=== PATIENT | female | born 1955 | race Caucasian/White ===

== ENCOUNTER 2021-03-09 16:23 | Emergency (ER) | payer OTHER, SELFPAY ==
[2021-03-09 16:40] VITALS: BP 124/51; PULSE 86; RESP 18; TEMP 36.9; O2SAT 100
--- NOTE | 2021-03-09 18:03 | ED.URI ---
HPI - URI/Sore Throat General Chief Complaint: Upper Respiratory Infection Stated Complaint: sore throat ear pain congestion Time Seen by Provider: 03/09/21 18:04 Source: patient, RN notes reviewed and old records reviewed Mode of arrival: ambulatory Limitations: no limitations History of Present Illness HPI Narrative: 65 year old female presents to [facility] with complaints of cough, sore throat, bilateral ear pain, post nasal drainage since yesterday. Patient denies any known fevers, chills or sweats, denies any shortness of breath with exertion or at rest, no wheezing noted, no complaints of nausea, vomiting or diarrhea. Patient reports that she has taken DayQuil and NyQuil with no improvement in her symptoms. Patient reports that she has had COVID immunizations. MD elicited complaint: cough, sore throat, rhinorrhea and nasal congestion Pertinent past history: other (tobacco abuse) Onset (ago): day(s) (1) Consistency: progressively worsening Severity: moderate Pain scale (0-10): 6 Description of mucous: clear Able to tolerate fluids by mouth: Yes Exacerbating factors: swallowing Relieving factors: nothing Associated symptoms: rhinorrhea, nasal congestion, sore throat, cough and ear pain Treatments prior to arrival: other (Dayquil and Nyquil) Related Data Allergies Allergy/AdvReac Type Severity Reaction Status Date / Time No Known Allergies Allergy Verified 03/09/21 16:59 Review of Systems Review of Systems: Narrative: CONSTITUTIONAL: Denies fever, chills, or sweats. EYES: Denies visual changes, redness, or discharge. ENT: Positive for post nasal rhinorrhea, congestion, sore throat, no otalgia. CARDIOVASCULAR: Denies chest pain, palpitations, or edema. RESPIRATORY: Positive cough denies dyspnea. GASTROINTESTINAL: Denies abdominal pain, nausea, vomiting, or diarrhea. GENITOURINARY: Denies dysuria or hematuria. SKIN: Denies rash or itching. MUSCULOSKELETAL: Denies back pain, joint pain, or myalgia. NEUROLOGIC: Denies headache, numbness, or weakness. PSYCHIATRIC: Denies anxiety or depression. All systems reviewed & are unremarkable except as noted in HPI and below PMFSH Past Medical History Medical History (Updated 03/13/21 @ 10:37 by Joanie Ocasio NP) No significant medical problems Surgical History Surgical History (Updated 03/13/21 @ 10:31 by Joanie Ocasio NP) H/O total hysterectomy History of back surgery History of surgical removal of pilonidal cyst History of tonsillectomy Hx of cholecystectomy Family History Family History (Updated 03/13/21 @ 10:32 by Joanie Oacsio NP) Mother Hypertension Grandparent Heart disease Father Carcinoma of colon Social History Social History (Updated 03/13/21 @ 10:33 by Joanie Ocasio NP) Smoking packs per day: 1 Smoking cigarettes per day: 20.0 Years smoked: 40 Smoking pack-years: 40.00 Smoking status: Current every day smoker Alcohol intake: current Alcohol use details: social Substance use: never Living arrangements: with family Gender identity (if verbalized by the patient): Female Comments At time of signature, agree with nursing past medical, surgical, social and family history. There is no relevant family history pertinent to the presenting complaint Exam Narrative: Exam Narrative: GENERAL: Well-appearing, well-nourished, and in no acute distress. HEAD: Normocephalic, atraumatic. EYES: PERRLA and EOMI. ENT: Nares clear,clear rhinorrhea no epistaxis. Mucous membranes moist.TM's normal with good light reflex, throat light red with no lesions or exudates no tonsils noted, post nasal drainage NECK: Supple.no lymphadenopathy CHEST: Clear to auscultation. No respiratory distress.non productive cough, SAO2 100% on room air no tachypnea or accessory muscle use HEART: Regular rate and rhythm. No murmur heard. Normal peripheral pulses. ABDOMEN: Soft, nontender, nondistended, normal active bowel sounds. EXTREMITIES: Normal ran
== END 2021-03-09 18:20 | disposition home or self-care (01) ==
PROVIDERS: Emergency Provider Registered Nurse; PCP Family Medicine
DX: J06.9 Acute upper respiratory infection, unspecified (principal); J02.9 Acute pharyngitis, unspecified
CPT/HCPCS: 87081; 87880; 99213; G0463

== ENCOUNTER 2021-12-16 15:35 | Emergency (ER) | payer OTHER, SELFPAY ==
[2021-12-16 15:39] VITALS: BP 110/69; PULSE 82; RESP 18; TEMP 36.9; O2SAT 97
--- NOTE | 2021-12-16 15:49 | ED.URI ---
HPI - URI/Sore Throat General Chief Complaint: Upper Respiratory Infection Stated Complaint: congestion and runny nose Time Seen by Provider: 12/16/21 15:49 Source: patient and RN notes reviewed Mode of arrival: ambulatory Limitations: no limitations History of Present Illness HPI Narrative: 66-year-old female presents with concern for more than 2-week history of sinus congestion, pressure, drainage, cough. Reports [id number] medications are not improving her symptoms. She denies fever, body aches, chills, sweats. She denies shortness of breath or sick contacts. MD elicited complaint: cough and nasal congestion Related Data Allergies Allergy/AdvReac Type Severity Reaction Status Date / Time No Known Allergies Allergy Verified 12/16/21 15:50 Review of Systems Review of Systems: CONSTITUTIONAL: Denies malaise, chills, sweats, or fever. EYES: Denies visual changes, redness, or discharge. ENT: Reports rhinorrhea, congestion, sinus pain. Denies otalgia and sore throat. CARDIOVASCULAR: Denies chest pain, palpitations, or edema. RESPIRATORY: Reports cough. Denies dyspnea. GASTROINTESTINAL: Denies abdominal pain, nausea, vomiting, diarrhea SKIN: Denies rash or itching. MUSCULOSKELETAL: Denies myalgia. NEUROLOGIC: Denies headache. All systems reviewed & are unremarkable except as noted in HPI and below PMFSH Past Medical History Medical History (Updated 12/16/21 @ 15:53 by Margaux Cottrell NP) No significant medical problems Surgical History Surgical History (Updated 03/13/21 @ 10:31 by Joanie Ocasio NP) H/O total hysterectomy History of back surgery History of surgical removal of pilonidal cyst History of tonsillectomy Hx of cholecystectomy Family History Family History (Updated 03/13/21 @ 10:32 by Joanie Ocasio NP) Mother Hypertension Grandparent Heart disease Father Carcinoma of colon Social History Social History (Updated 03/13/21 @ 10:33 by Joanie Ocasio NP) Smoking packs per day: 1 Smoking cigarettes per day: 20.0 Years smoked: 40 Smoking pack-years: 40.00 Smoking status: Current every day smoker Alcohol intake: current Alcohol use details: social Substance use: never Gender identity (if verbalized by the patient): Female Comments At time of signature, agree with nursing past medical, surgical, social and family history. There is no relevant family history pertinent to the presenting complaint Exam Narrative: GENERAL: Well-appearing, well-nourished, and in no acute distress. HEAD: Normocephalic EYES: PERRLA, conjunctivae clear ENT: Nares clear, turbinates edematous and erythematous, sinus tenderness. Mucous membranes moist. TM pearly chirinos with dull light reflex bilaterally; no tragal tenderness. Oropharynx not erythematous without lesions. Tonsils not enlarged and without exudate, no drooling, no hoarseness, no trismus, uvula midline. NECK: Supple. No lymphadenopathy CHEST: Clear to auscultation, breath sounds equal. No wheezing, rhonchi, rales, or stridor. No respiratory distress, speaks in full sentences. HEART: Regular rate and rhythm. No murmur heard. SKIN: Warm, dry, no rash. NEURO: Alert and oriented x3. PSYCH: Normal mood and affect Course Course Emergency Course: Patient is aware of diagnosis, understands and agrees to treatment plan. Anticipatory guidance given. Patient agrees to follow-up as directed and is aware of reasons to seek care at the emergency department. Portions of this record may have been created with voice recognition software Level of Care: Express Care Visit Vital Signs Vital signs: Vital Signs Temperature 98.5 F 12/16/21 15:39 Pulse Rate 82 12/16/21 15:39 Respiratory Rate 18 12/16/21 15:39 Blood Pressure 110/69 12/16/21 15:39 Pulse Oximetry 97 12/16/21 15:39 Temperature 98.5 F 12/16/21 15:39 Pulse Rate 82 12/16/21 15:39 Respiratory Rate 18 12/16/21 15:39 Blood Pressure 110/69 12/16/21
== END 2021-12-16 15:55 | disposition home or self-care (01) ==
PROVIDERS: Emergency Provider Nurse Practitioner; PCP Family Medicine
DX: J32.9 Chronic sinusitis, unspecified (principal); J40 Bronchitis, not specified as acute or chronic; F17.210 Nicotine dependence, cigarettes, uncomplicated
CPT/HCPCS: 99213; G0463